=== PATIENT | female | born 1945 | race Caucasian/White ===

== ENCOUNTER 2023-02-13 10:46 | Emergency (ER) | payer OTHER ==
[~2023-02-13] VITALS: Ht 152.4 cm; Wt 42.6 kg
[2023-02-13] MEDS ORDERED: LEVO-T75 MCG PO (10:55)
== END 2023-02-13 12:37 | disposition home or self-care (01) ==
LOC: ER 10:47
DX: M21.611 Bunion of right foot (principal)
CPT/HCPCS: 96372; 99283; J0696; J1885

== ENCOUNTER 2023-12-08 08:20 | Emergency (ER) | payer OTHER ==
[~2023-12-08] VITALS: Ht 152.4 cm; Wt 51.7 kg
[~2023-12-08 08:20] MED LIST: LEVO-T75 MCG PO
[2023-12-08] MEDS ORDERED: CIPRO HC OTIC S10 ML OT (09:43)
== END 2023-12-08 10:02 | disposition home or self-care (01) ==
LOC: ER 08:20
DX: H92.01 Otalgia, right ear (principal); H60.92 Unspecified otitis externa, left ear; L97.519 Non-pressure chronic ulcer of other part of right foot with unspecified severity; E03.9 Hypothyroidism, unspecified